=== PATIENT | male | born 1960 | race Asian ===

== ENCOUNTER 2024-12-01 18:25 | Inpatient (IN) | payer BC, SELFPAY ==
[2024-12-01] VITALS (8 sets, daily range): BP systolic 122–145; BP diastolic 82–100
--- NOTE | 2024-12-01 17:08 | ED.GENMED ---
History of Present Illness
General
Chief Complaint: Cardiac Symptoms
Source: patient and ambulance crew
Time Seen by Provider: 12/01/24 17:08
History of Present Illness
History of Present Illness:
63-year-old male presents with chest pain. The patient states the pain is 3 out of 10 but originally presented to an urgent care with 8 out of 10 chest pain. Patient was given nitroglycerin sublingual and 325 mg of aspirin by urgent care and 911
was called. EKG at the urgent care and confirmed by EMS was ST elevation changes. EMS was able to transmit his EKG prior to arrival which showed STEMI. A STEMI alert was initiated prior to arrival. Patient was met at the ambulance door by me.
Dr. Somers at bedside on arrival. Additional history by EMS, EMS reports that the pain has remained stable at a 3 out of 10 en route
Past History
Past History
ED Past Medical History: None
Social History
Tobacco: Non-smoker
Family History
Family History: CAD
Phy Exam
Physical Exam
Physical Exam:
CONSTITUTIONAL Vital signs reviewed, Patient alert and oriented to person, place and time. Well-appearing
HEAD atraumatic, normocephalic.
EYES eyelids normal to inspection, Extraocular muscles intact, Conjunctiva normal, Sclera normal.
NECK normal range of motion, Trachea midline, no jugular venous distention.
RESP no respiratory distress
BACK No obvious deformities
UPPER EXTREMITY Gross Range of motion normal, gross motor strength normal
LOWER EXTREMITY Gross range of motion normal, Gross motor strength normal
NEURO Speech normal, No focal motor deficits include, Sarina coma scale 15, Memory normal, Cranial Nerves intact to screening exam.
SKIN Skin warm, dry, and normal in color.
PSYCHIATRIC Patient oriented to person place and time, Normal affect.
Course
Orders/Labs/Results
Orders:
Orders
12/01/24 Dinner
Cholesterol Lowering
At Your Request: Full Participation
Does patient need a safe tray?: No
Cholesterol Lowering: Sodium, 2 Gram
12/01/24 17:06
CMP [Comprehensive Metabolic Panel] Urgent
Complete Blood Count/With Diff Urgent
Glycohemoglobin (HgbA1c) Urgent
PT/INR [Prothrombin Time] Urgent
PTT Urgent
12/01/24 17:31
Troponin I Urgent
12/01/24 17:34
Eptifibatide [Integrilin] 20 ml .ROUTE .STK-MED
12/01/24 18:16
Admit Patient As Directed
Co-Sign Provider:
Level of Care: Inpatient admission
Assign to:: IVU
Physician / Group: marylin
Diagnosis: Anterior wall ID
Reason for Hospitalization: Anterior wall ID
Expected length of stay greater than two midnights?: Yes
ELOS- Estimated Length of Stay in days: 2
I certify the patient meets the requirements for IP care: Yes
Electrocardiogram (*1) Urgent
Reason for Study: Other
Other Reason for Exam: s/p intervention
Code Status As Directed
Resuscitation Status: Full Code
CARDIAC REHAB CONSULT Routine
Co-Sign Provider:
Cardiac Rehab & Exercise Evaluation Referral
Type of Cardiac Rehab Referral: Outpatient
Diagnosis: STEMI
Date of Diagnosis/Surgery:
Referring Provider: Cal Coulter
[facility] Intensive Cardiac Rehab Exercise Prescription
The above named person is capable of participating in an intensive cardiac rehab exercise therapy program
under the guidance of the [facility] cardiac rehab staff, outpatient registered dieticians and
supervision of a physician.
ICR Program Objectives:
Provide supervised exercise, cooking classes, nutritional counseling and healthy mind-set education to
improve the function/symptom free work capacity to an optimal level as well as control risk factors to
prevent the progression of heart disease. During the supervised exercise therapy session some or all of
the following may be included in the cardiac rehab session: ECG telemetry, BP, heart rate, rate of
perceived exertion, symptoms/tolerance, cholesterol testing and education. Exercise modalities may
include: treadmill, upright or recumbent bike, spin bike, rowing machine, elliptical, recumbent
elliptical, arm-bike machine, recumbent stepper and free weights.
Intensity:
All CR staff will use ACSM guidelines: Most patients will exercise in the following range: Heart Rate
[place] range of 40% to 80% & Oxygen Uptake reserve range 40-80% (VO2R). Peak heart rate and VO2 are
derived from the cardiac rehab submaximal graded exercise test at RPE of 13/14 out of 20. Initial
intensity range: RPE 11 to 14/20 and may expand to 11 to 16/20.
Duration & Frequency:
If appropriate the patient will be progressed up to 40 minutes of exercise therapy. Patients will be
instructed to come three times a week in cardiac rehab and at a home/other gym to achieve optimal
physical activity/exercies i.e. 4000-10,000 steps per day.
Education:
The patient will receive one-on-one education during their orientation, initial exercise evaluation, ITP
reassessments and discharge session. Each exercise session will also include an education class (30-40
minutes).
Acetaminophen [Tylenol] 650 mg PO Q4HPRN PRN
Activity As Directed
Activity Level: Out of Bed- Chair
Comment: bed/chair rest for 2 hours then out of bed ad shea
Lunch Truck Operator Procedure As Directed
Cardiac Cath Procedure: percutaneous coronary intervention
Intake/ Output As Directed
Frequency: Per unit guidelines
Notify MD As Directed
Notify physician if: immediately for chest pain or bleeding from access site(s)
Radial Artery Hemostasis Method As Directed
Instructions:: 3 mL out at 2 hour posts placement of band
3 mL out at 2 1/2 hours post placement of band
3 mL out at 3 hours post placement of band
Off at 3 1/2 hours post placement of band
If any oozing or hemotoma occurs:: re-inflate band and call provider
Site Checks As Directed
Check access site for bleeding/hematoma: Yes
Comment: on arrival, Q15min x4, Q30min x2, Q1 hr x2, Q2 hr x2, Q4 hr or per
protocol
Vascular Checks As Directed
Location: distal to access site - pulse check
Frequency: Other
Comment: on arrival, Q15min x4, Q30min x2, Q1 hr x2, Q2 hr x2, Q4 hr or per protocol
Vital Signs As Directed
Frequency: Other
Additional Instructions:: on arrival, Q15min x4, Q30min x2, Q1 hr x2, Q2 hr x2, then Q4 hr or per unit
protocol
PRN Pain Medication Management As Directed
May give lesser potent ordered pain med per pt: Yes
preference::
Protocol:: Medication orders for pain may be administered in a
manner that supports deferring to patient preference
when the pt is:
- Requesting an ordered lesser potent pain medication.
Least to most potent pain medications are defined
as: acetaminophen < NSAID < tramadol < opioids
(morphine, oxycodone, hydromorphone).
- Requesting a lesser dose of the same medication IF
ORDERED.
- Requesting a less intrusive route of administration
if both routes are prescribed by the provider (PO <
IV).
12/01/24 18:17
DX Deep Vein Thrombosis Video Routine
12/01/24 18:30
Troponin I Q6H
0.9% Sodium Chloride 1000 ml [Nss] 1,000 ml IV PER PROTOCOL
Infusion rate in mL/kg/hr:: 1.5
Infusion rate in mL/hr:: 118
Duration of infusion (hours):: 4
Atorvastatin [Lipitor] 80 mg PO QPM
12/01/24 19:00
Flush (0.9% Sodium Chloride) [Flush (Nss)] See Dose Instructions IV PER PROTOCOL
12/02/24 00:30
Troponin I Q6H
12/02/24 06:00
Echo 2D MMode Color/Doppler IN AM
Reason for Study: Anterior wall ID
Cardiology Consult: Cal Coulter
Electrocardiogram (*1) IN AM
Reason for Study: Other
Other Reason for Exam: s/p intervention
Basic Metabolic Panel IN AM
Cardiovascular Evaluation IN AM
Complete Blood Count/No Diff IN AM
12/02/24 06:30
Troponin I Q6H
12/02/24 08:00
Aspirin Chewable [Low Strength Aspirin] 81 mg PO DAILY
Lisinopril [Zestril] 2.5 mg PO DAILY
Metoprolol Xl [Toprol Xl] 12.5 mg PO DAILY
Pantoprazole [Protonix] 40 mg PO DAILY
Ticagrelor [Brilinta] 90 mg PO BID
12/02/24 18:00
Enoxaparin Sodium [Lovenox] 40 mg SC QPM
Abnormal Lab Results
12/01/24 12/01/24 12/01/24
17:06 17:30 17:31
WBC 11.5 H 10^3/uL
(4.8-10.8)
Absolute Neuts (auto) 8.6 H 10^3/uL
(1.4-6.5)
Absolute Monos (auto) 0.8 H 10^3/uL
(0.1-0.6)
Lymphocytes % 16.9 L %
(20.5-51.1)
Glucose 113 H mg/dl
(70-99)
Troponin I 0.158 H* ng/ml
POC ACT Low Range 184 H Seconds
(116-155)
12/01/24 12/01/24
17:40 18:01
WBC
Absolute Neuts (auto)
Absolute Monos (auto)
Lymphocytes %
Glucose
Troponin I
POC ACT Low Range 245 H Seconds 298 H Seconds
(116-155) (116-155)
12/01/24 17:06
12/01/24 17:06
Vital Signs
Initial and Last Documented VS:
Initial Vital Signs
Temp Resp Pulse Ox
98.6 F 19 99
12/01/24 19:08 12/01/24 19:08 12/01/24 19:08
Last Documented Vital Signs
Temp Resp Pulse Ox
98.6 F 19 99
12/01/24 19:08 12/01/24 19:08 12/01/24 19:08
MDM/Problems Addressed
Differential Diagnosis Includes:
Acute coronary syndrome/myocardial infarction, pericarditis, myocarditis, aortic dissection
MDM/Problems Addressed:
Acute coronary syndrome, acute myocardial infarction
*Pulse Oximetry
SaO2: 98
Oxygen Mode of Delivery: Room air
Patient hypoxic: no
*EKG
Interpreted by ED Provider?: Yes
Interpretation: abnormal
Rate: normal
Rhythm: sinus
Ischemia: ST elevation
*Network Development Coordinator Interpretation
Rate: normal
Interpretation: normal
Rhythm: sinus
*Critical Care Note
Total Time (30-74mins, 75-104mins- exclusive of procedures): Not Applicable
Data Reviewed
Source: patient and ambulance crew
Further Testing Considered But Not Given:
Considered CT with patient showing evidence of ST elevation ID taken emergently to cardiac catheterization lab
Patient Management
Discussion with other providers: Glue Maker Bone
Escalation/DeEscalation of care consider admission/obs:
Case discussed with Dr. Coulter. But Dr. Couletr was able then to come down and meet the patient at bedside and accompanied the patient to cardiac catheterization lab. Patient remained stable while in the emergency department. Heparin and Brilinta
given
ED Attending Note
-
Portions of this chart may have been created with voice recognition software.� Occasional wrong word or��sound alike� substitutions may have occurred due to the inherent limitations of voice recognition software.
Discharge Plan
Departure
Patient Disposition: Admit
Date of Disposition: 12/01/24
Time of Disposition: 17:08
Admit to: Telemetry and laboratory technology teacher
Presentation/result/management discussed w/ accepting MD/DO: Marylin
Discharge Problem:
ST elevation (STEMI) myocardial infarction
Interventions
Interventions:
*Nursing Disposition Last Done: 12/01/24 17:09
Discharge Date and Time
Discharge Date/Time: 12/01/24 17:12
[2024-12-01 17:14] LABS: Hematocrit 41.4 % (39.0-52.0); Hemoglobin 14.6 g/dL (13.0-18.0); Mean Corp Hgb Conc. 35.3 g/dL (33.0-37.0); Mean Corpuscular Volume 86.1 fL (80.0-94.0); Nucleated Red Blood Cells % 0 % (-); Platelet Count 321 10^3/uL (130-400); Red Cell Dist. Width 13.1 % (11.5-14.5)
[2024-12-01 17:24] LABS: APTT 27.3 Sec (23.4-35.0); INR 0.93; PT 12.8 Sec (11.4-14.6)
[2024-12-01 17:33] LABS: ALT (SGPT) 28 U/L (0-50); AST (SGOT) 26 U/L (17-59); Albumin 4.4 g/dl (3.5-5.0); Alkaline Phosphatase 43 U/L (38-126); Blood Urea Nitrogen 19 mg/dl (9-20); Calcium 9.4 mg/dl (8.4-10.2); Carbon Dioxide 25 mmol/L (22-30); Chloride 103 mmol/L (98-107); Glucose 113 mg/dl (70-99); Potassium 4.3 mmol/L (3.5-5.1); Sodium 135 mmol/L (135-145); Total Protein 6.8 g/dl (6.3-8.2); eGFR > 60.00
[2024-12-01 17:34] LABS: ACT-LR - POC 184 Seconds (116-155)
[2024-12-01 17:46] LABS: ACT-LR - POC 245 Seconds (116-155)
[2024-12-01 18:09] LABS: ACT-LR - POC 298 Seconds (116-155)
--- NOTE | 2024-12-01 18:27 | ITS.CL.CATH ---
Felt Cutter - Catheterization
Cardiac Catheterization
Procedure Report:
LEFT HEART CATH AND CORONARY INTERVENTION
Date of Procedure: December 01, 2024
Referring: [facility] Emergency Department
PROCEDURES:
1. Left heart catheterization with coronary and single-plane left ventriculography
2. Successful stenting of the mid LAD with a 2.75 x 26 mm Midlothian stent that was implanted at nominal pressures and postdilated with a 2.75 mm noncompliant balloon to high pressures
3. Intravascular ultrasound guided post dilation of the Midlothian stent
INDICATION: This is a 63-year-old gentleman who has no prior cardiovascular history and reported the onset of severe substernal chest pressure beginning at approximately 3 PM-3:30 PM this afternoon. He was here visiting family from his home outside
of [facility] and called his cousin who took him to a local urgent care. An electrocardiogram at the urgent care facility was notable for anterior ST segment elevation involving leads V1 through V3. 911 was called and a prehospital STEMI
alert was activated. Patient received aspirin and upon arrival to [facility] his chest pain had improved from 10/10 to 3/10 in intensity but his electrocardiogram was notable for persistent anterior ST segment elevation and he was brought
to the catheterization laboratory via ED bypass protocol.
Of note, the patient does report that he drinks approximately 2-3 alcoholic beverages daily
ACCESS: Right radial artery, 6 Nauruan sheath
HEMODYNAMICS (mmHg):
AO (s/d, m) : 131/79, 82
LV (s/d) : 131/2
LVEDP : 12
CORONARY FINDINGS
Dominance: Right
LEFT MAIN: Normal
LEFT ANTERIOR DESCENDING: The LAD arises normally from the left main and runs in the anterior interventricular groove. The mid LAD has a thrombotic subtotal occlusion just beyond a medium caliber diagonal branch with JOE I flow into the distal
vessel.
RAMUS: Large and widely patent
CIRCUMFLEX: The circumflex is a medium to large caliber nondominant vessel supplying several small obtuse marginal branches before continuing in the AV groove terminating in a moderate size posterolateral system. Only minor irregularities are noted.
RIGHT CORONARY: The right coronary artery is a dominant vessel and has minor irregularities over its course. No focal obstructive stenosis is appreciated
VENTRICULOGRAPHY: Left ventriculography is performed in an RICKETTS projection. The digital single-plane left ventricular ejection fraction is estimated at 60% with mid to distal anterior hypokinesis
ANGIOPLASTY PROCEDURE DETAIL: Upon review of the diagnostic catheterization films the decision was made to proceed with percutaneous revascularization of the subtotally occluded mid LAD. Intravenous heparin was administered and the ACT was
monitored throughout the procedure and maintained within therapeutic limits. The decision was made to treat with double bolus Integrilin as the patient was na�ve to antiplatelet therapy and angiography suggested a large thrombotic burden in the mid
LAD beyond the diagonal branch.
I initially attempted to cannulate the origin of the left main with an EBU 3.5 guiding catheter which unfortunately did not sit well at the origin of the left main. The EBU was removed and exchanged for an XB 3.5 mm 6 Nauruan guide catheter which
cannulated the origin of the left main well. A BMW was advanced across the stenotic segment in the mid LAD and the tip of the wire was advanced into the distal LAD. Balloon predilation was performed with a 2.25 x 15 mm Euphora balloon with 2
inflations to 8 daniel. Improved antegrade flow to the LAD was noted. A 2.75 x 26 mm Diallo stent was then advanced over the guidewire and positioned with angiographic and fluoroscopic guidance. The Diallo stent was implanted at nominal pressure.
Intravascular ultrasound was performed. The distal portion of the stent appeared well-approximated to the distal vessel and was well-expanded. The midportion of the stent appeared mildly underexpanded but appropriately sized in the proximal
portion of the stent appeared mildly underexpanded but appropriately sized. A 2.75 x 20 mm noncompliant balloon was advanced to the mid LAD and inflated to 18 daniel. The balloon was retracted to the proximal portion of the stent and inflated to 20
daniel with a nice angiographic result.
SEDATION: 52 minutes of procedural sedation was utilized. An independent medical delivery technician was present to assist with and help manage the patient's level of consciousness and physiologic status
RADIATION SUMMARY: Fluoro Time (min): 13.2, Dose (mGy): 735, DAP (Gy.cm2) : 45.3
CONCLUSIONS
1. Evolving anterior wall myocardial infarction successfully treated with angioplasty and stenting with placement of a 2.75 x 26 mm Midlothian stent that was postdilated with a 2.75 mm noncompliant balloon following intravascular ultrasound guidance.
2. Low normal to Erwin reduced LVEF
RECOMMENDATIONS
1. Will trend serial troponin levels, obtain hemoglobin A1c and fasting lipid profile
2. Uninterrupted dual antiplatelet therapy for 1 year
3. High intensity statin therapy
4. Guideline directed medical therapy post ND with initiation of oral beta-jennifer and SLIM inhibitor. Will follow blood pressures and titrate as blood pressure tolerates
5. Check echocardiogram
[2024-12-01 18:33] LABS: Troponin I 0.158 ng/ml
--- NOTE | 2024-12-01 18:59 | PTCARENOTE ---
Received pt post cath. Right radial cath site w/ R band intact and inflated w/ air. VSS. EKG obtained. Pt denies any chest pain. Will monitor.
[2024-12-01] MEDS: LIPITOR 80 MG PO (21:02)
--- NOTE | 2024-12-01 22:50 | PTCARENOTE ---
assumed care of patient at the change of shift. post cardiac cath. denies any cp/sob. SR on tele. family at the bedside.
right radial band removed with no issues at approx 2230. + pulses. denies any cp. ambulated to the bathroom. denies any lightheadedness/dizziness. CAD booklet and new med list provided and reviewed. educated patient to inform Rn with any changes
overnight. call swanson within reach. makes needs known.
[2024-12-01 23:16] LABS: Troponin I 28.700 ng/ml
[2024-12-02] VITALS (9 sets, daily range): BP systolic 112–158; BP diastolic 75–105
[2024-12-02 04:43] LABS: Hematocrit 42.9 % (39.0-52.0); Hemoglobin 14.9 g/dL (13.0-18.0); Mean Corp Hgb Conc. 34.7 g/dL (33.0-37.0); Mean Corpuscular Volume 86.1 fL (80.0-94.0); Platelet Count 324 10^3/uL (130-400); Red Cell Dist. Width 13.1 % (11.5-14.5)
[2024-12-02] MEDS: APRESOLINE 5 MG IV (04:52)
--- NOTE | 2024-12-02 04:56 | PTCARENOTE ---
Addendum entered by Dewayne Cottrell RN 12/02/24 05:35:
repeat blood pressure- 127/86.
Original Note:
patient rested well overnight. no chest pain. Right radial site intact. elevated bp- 158/100. updated Ed Darcy CV PA. 5 mg IV Hydralazine ordered and given, see mar.
[2024-12-02 05:08] LABS: Blood Urea Nitrogen 14 mg/dl (9-20); Calcium 9.5 mg/dl (8.4-10.2); Carbon Dioxide 27 mmol/L (22-30); Chloride 107 mmol/L (98-107); Estimated Creatinine Clearance 58 ml/min; Glucose 113 mg/dl (70-99); HDL Cholesterol 45 mg/dl; LDL Cholesterol, Calculated 168 mg/dl; Potassium 4.6 mmol/L (3.5-5.1); Sodium 138 mmol/L (135-145); Very Low Density Lipoprotein 33 mg/dl (0-30); eGFR > 60.00
[2024-12-02 05:18] LABS: Troponin I 24.300 ng/ml
[2024-12-02 07:50] LABS: ACT-LR - POC > 397 Seconds (116-155)
[2024-12-02 08:40] LABS: Glycohemoglobin (HgbA1c) 5.8 % (4.0-5.6)
[2024-12-02] MEDS: TOPROL XL 12.5 MG PO (08:46)
[2024-12-02] MEDS: PROTONIX 40 MG PO (08:46)
[2024-12-02] MEDS: BRILINTA 90 MG PO ×2 (08:47→19:31)
[2024-12-02] MEDS: LOW STRENGTH ASPIRIN 81 MG PO (08:47)
[2024-12-02] MEDS: ZESTRIL 2.5 MG PO (08:47)
--- NOTE | 2024-12-02 08:54 | W.PN.CARDCBS ---
Addendum entered and electronically signed by Marissa Haro MD 12/02/24 15:24:
10. Discussed outpatient cardiac rehab.
Marissa Haro MD
Addendum entered and electronically signed by Marissa Haro MD 12/02/24 15:12:
I saw and examined the patient.
The User Acceptance Tester's note was reviewed and I agree with the note.
Comment: Patient is doing well this morning and does not offer any major complaints. No further chest discomfort or shortness of breath. He is ambulated to the bathroom without any issues. No issues at the right radial access site.
Vital signs and lab work reviewed. Troponin peaked at about 28.7, downtrending. On exam patient is well-appearing, no acute distress, awake, alert and oriented x 3, at bedside, regular rate, normal S1 and S2, no murmurs, rubs or gallops, no
JVD, lungs are clear to auscultation bilaterally, abdomen is soft, nontender, nondistended with active bowel sounds, warm extremities without significant edema. Right radial access site with dressing in place which is clean, dry and intact without
evidence of hematoma or bruit.
Echocardiogram shows low normal left ventricular systolic function. Telemetry with ventricular ectopy and AIVR
Recommendations:
1. Uninterrupted dual antiplatelet therapy with daily baby aspirin and Brilinta 90 mg twice daily along with high intensity statin. Extensive education was provided in regards to importance of not missing DAPT therapy or stopping cardiac
medication suddenly without discussion with a horses or mules teamster. LDL goal of less than 55.
2. Slowly uptitrate beta-jennifer as warranted especially with some ventricular ectopy on telemetry.
3. Educated in regards to aggressive risk factor modification especially in the setting of prediabetes and poorly controlled hypertension as well as hyperlipidemia.
4. We discussed following a heart healthy high-fiber Mediterranean type diet.
5. Given he lives in [place] we will work on obtaining CD with cath and echo images as well as reports to bring along with him.
6. They inquired about when it would be safe to travel back home. We discussed spending at least a week here after discharge to make sure he does well with plan to fly home at the earliest towards the end of next week as long as there is no issues.
7. Your primary care physician, Dr. Lopez, was on speaker phone while I was in there reviewing all of the above and has reached out to his cardiology colleagues already for patient to follow-up with in [place].
8. Emphasize importance of alcohol abstinence.
9. Continue to monitor at least overnight and hopefully if no other issues, would likely plan for discharge tomorrow.
Marissa Haro MD, [facility]
Total time spent: 52mins
Original Note:
Today's Communication / Plan
-
continue post [facility] care
DAPT
Will start to work on finding horses or mules teamster in [place]
Impression / Plan
-
PCP: [place], [place]
63-year-old gentleman who has no prior cardiovascular history and reported the onset of severe substernal chest pressure beginning at approximately 3 PM-3:30 PM this afternoon. He was here visiting family from his home outside of [facility]
and called his cousin who took him to a local urgent care. An electrocardiogram at the urgent care facility was notable for anterior ST segment elevation involving leads V1 through V3. 911 was called and a prehospital STEMI alert was activated.
Patient received aspirin and upon arrival to [facility] his chest pain had improved from 10/10 to 3/10 in intensity but his electrocardiogram was notable for persistent anterior ST segment elevation and he was brought to the catheterization
laboratory via ED bypass protocol.
Impression:
Anterior STEMI
post PCI mid LAD [id number] Warriors Mark MIGUELANGEL 12/01/24
Elevated glucose
Daily ETOH
Family history CAD
Plan:
post PCI no further chest pain
rad site stable
tele SR with NSVT 8b, AIVR
Troponin peaked at 28.7
Echo currently being done
DAPT ASA/Brilinta (CM to eval cost)
New start to metoprolol xl and lisinopril
LDL 168, TG 166, continue high intensity statin, will need repeat LFT's, lipids in 6-8 weeks
A1c pending
He will need to make apt with horses or mules teamster in [place]
Cardiac rehab c/s
ETOH cessation reinforced
Will make disc and give copy of records to pt as he plans to fly back to [place] within the next week
continue to monitor another 24-48 hours on tele
oob ambulate later today
Progress Note - Atm Manager
Subjective
Date of Service: December 02, 2024
denies cp, sob
Objective
Labs:
12/02/24 04:21
12/02/24 04:21
Labs
Hgb 14.9 g/dL (13.0-18.0) 12/02/24 04:21
Hct 42.9 % (39.0-52.0) 12/02/24 04:21
Plt Count 324 10^3/uL (130-400) 12/02/24 04:21
PT 12.8 Sec (11.4-14.6) 12/01/24 17:06
INR 0.93 12/01/24 17:06
APTT 27.3 Sec (23.4-35.0) 12/01/24 17:06
Sodium 138 mmol/L (135-145) 12/02/24 04:21
Potassium 4.6 mmol/L (3.5-5.1) 12/02/24 04:21
BUN 14 mg/dl (9-20) 12/02/24 04:21
Creatinine 1.2 mg/dL (0.7-1.3) 12/02/24 04:21
Glucose 113 mg/dl (70-99) H 12/02/24 04:21
Troponins
12/01/24 12/01/24 12/01/24
17:06 17:31 22:30
Troponin I Cancelled 0.158 H* 28.700 H* D
12/02/24 12/02/24
04:21 06:30
Troponin I 24.300 H* Cancelled
Vital Signs and I&O:
Vital Signs
Temp Pulse Resp BP Pulse Ox
98.1 F 88 20 130/87 98
12/02/24 07:55 12/02/24 08:46 12/02/24 07:55 12/02/24 08:46 12/02/24 07:55
Vital Signs
Temp Pulse Resp BP Pulse Ox
98.1 F 88 20 130/87 98
12/02/24 07:55 12/02/24 08:46 12/02/24 07:55 12/02/24 08:46 12/02/24 07:55
Intake & Output
11/30/24 12/01/24 12/02/24 12/03/24
06:59 06:59 06:59 06:59
Intake Total 250 / 250
Output Total 950 / 950
Balance -700 / -700
Physical Exam
Physical Exam
NAD, AOx3
S1, s2, RRR
CTAB, non labored, no wheeze
SNTND Bsx4
R rad site c/d/i no HT, good pulse
--- NOTE | 2024-12-02 11:06 | CM ---
Addendum entered by Wilda Lopez 12/02/24 15:15:
Telephone call to [facility] at [place] to confirm that his Ticagrelor 90 mg po bid has been filled. The script has been filled and waiting for pick-up. His co-pay is $30.00.
Addendum entered by Wilda Lopez 12/02/24 11:58:
Telephone call to [facility], ([phone])coverage to check on co-pay for Brilinta 90 mg po bid. Brilinta 90 mg po bid is $437.38 a month. the generic Ticagrelor is $30.00 a month and for 90 days is $90.00 a month. The in-network
providers are Cheryl Brice and [facility]. Reviewed co-pay with and Mrs. Henderson and they are agreeable to co-pay for Ticagrelor. Telephone call to [facility] in [place] to see if they have Ticagrelor 90 mg in stock, [facility]. Asked N.P to send script to [facility]. Faxed insurance information and demographic information to [employer]. Her hotel is in [place]. She is okay going to [facility] in [place] to sampler pickup the medications.
Original Note:
Reviewed chart. Met with and Mrs. Henderson to review discharge plans. He states prior to admission he resides in a one story home with one step to enter. He states prior to admission he was independent with ambulation and adls. He states he
does not have any DME in the home. He states he has a prescription plan. Tried to contact his insurance regarding co-pay for Brilinta. Not able to get an answer. Will try again. Currently he is here visiting and staying ion a hotel. Medical
work-up in progress. The discharge plan is to return home with his spouse when medically stable.
--- NOTE | 2024-12-02 11:10 | PTCARENOTE ---
Discussed ACS post cath plan of care. Discussed ASA and Brillinta w/ pt and pt's . Education material provided. Will monitor.
[2024-12-02] MEDS: LOVENOX 40 MG SC (18:04)
[2024-12-02] MEDS: LIPITOR 80 MG PO (18:04)
--- NOTE | 2024-12-02 22:52 | PTCARENOTE ---
Pt has no complaints of chest pain/discomfort, VSS, NSR on the monitor. Right radial cath site dressing CDI with no hematoma or bleeding, radial pulse normal. Pt. ambulatory in halls, hoping for discharge tomorrow.
[2024-12-03 04:42] VITALS: BP 108/63
[2024-12-03 07:45] VITALS: BP 119/70
[2024-12-03] MEDS: LOW STRENGTH ASPIRIN 81 MG PO (07:46)
[2024-12-03] MEDS: ZESTRIL 5 MG PO (07:46)
[2024-12-03] MEDS: PROTONIX 40 MG PO (07:46)
[2024-12-03] MEDS: BRILINTA 90 MG PO (07:46)
[2024-12-03] MEDS: TOPROL XL 25 MG PO (07:46)
--- NOTE | 2024-12-03 08:00 | PTCARENOTE ---
Assumed care at 0700. Patient comfortable at rest, denies pain. NSR. VSS, right radial cath site dressing CDI. Independent in the room, precautions reviewed, call swanson in reach
--- NOTE | 2024-12-03 09:01 | W.PN.CARDCBS ---
Addendum entered and electronically signed by Marissa Haro MD 12/03/24 15:35:
I saw and examined the patient.
The Concrete Paving Machine Operator's note was reviewed and I agree with the note.
Comment:
Overall patient is doing well and does not offer any significant complaints. is at bedside. No further chest pain or shortness of breath
Vital signs and lab work were reviewed. On exam patient is well-appearing, out of bed into a chair, regular rate, normal S1 and S2, no murmurs, rubs or gallops, no JVD, no carotid bruits, lungs are clear to auscultation bilaterally, abdomen is
soft, nontender, nondistended with active bowel sounds, warm extremities without significant edema. Right radial access site without evidence of hematoma or bruit
Echocardiogram with overall preserved LV systolic function.
Telemetry with reduce ventricular ectopy.
Recommendations:
1. Continue uninterrupted dual antiplatelet therapy with daily baby aspirin and Brilinta along with high intensity statin beta-jennifer and low-dose SLIM inhibitor as prescribed.
2. Aggressive management of cardiovascular risk factors.
3. Outpatient referral for cardiac rehab and outpatient cardiology follow-up in his hometown in [place] [place].
4. Answered all of their questions in detail to the best of my ability. Strongly advocate a heart healthy Mediterranean type diet and increasing activity with overall goal for weight loss to achieve a normal BMI.
Stable for discharge from a cardiac standpoint.
Marissa Haro MD, [facility], [facility]
Original Note:
Today's Communication / Plan
-
Continue aspirin, Brilinta, Lipitor, Toprol, lisinopril
Echo results reviewed with patient
Cardiac rehab and cardiac follow-up being arranged in [facility]
Okay for discharge today
Impression / Plan
-
PCP: Kiet MA
63-year-old gentleman who has no prior cardiovascular history and reported the onset of severe substernal chest pressure beginning at approximately 3 PM-3:30 PM this afternoon. He was here visiting family from his home outside of [facility] [place]
and called his cousin who took him to a local urgent care. An electrocardiogram at the urgent care facility was notable for anterior ST segment elevation involving leads V1 through V3. 911 was called and a prehospital STEMI alert was activated.
Patient received aspirin and upon arrival to [facility] his chest pain had improved from 10/10 to 3/10 in intensity but his electrocardiogram was notable for persistent anterior ST segment elevation and he was brought to the catheterization
laboratory via ED bypass protocol.
Impression:
Anterior STEMI status post PCI mid LAD [id number] Diallo MIGUELANGEL 12/01/24
Elevated glucose, hemoglobin A1c 5.8%
HLD
Daily ETOH
Family history CAD
Echo 12/02/2024: EF 50 to 55%, stage I diastolic dysfunction, severe hypokinesis of mid to distal anteroseptal wall, aortic sclerosis
Plan:
- Patient presented with chest pain and was a prehospital STEMI alert. Underwent urgent cardiac catheterization resulting in mid LAD PCI 12/01/2024. Troponin peaked at 28.
- No chest pain or shortness of breath overnight
- Right wrist site remains stable
- Telemetry sinus rhythm without arrhythmia noted
- Echo with results as above, discussed with patient 12/03
- Continue dual antiplatelet therapy with aspirin, Brilinta
- Was started on Toprol and lisinopril this admission, continue upon discharge
- LDL 168. Placed on high intensity statin. Would repeat LFTs and lipids in 6 to 8-week timeframe
- Hemoglobin A1c 5.8%
- For cardiac rehab in [place]
- supervisor speech discussed with PCP yesterday, who is arranging cardiac follow-up in [place] upon his return
- Will make disc of echo and cath for patient to take with him as well as printed copies of testing
- Plan for discharge today
- Discussed with nursing
Progress Note - Accounts Payable Accountant
Subjective
Date of Service: December 03, 2024
Denies chest pain, shortness of breath. Eager for discharge
Objective
Labs:
12/02/24 04:21
12/02/24 04:21
Labs
Hgb 14.9 g/dL (13.0-18.0) 12/02/24 04:21
Hct 42.9 % (39.0-52.0) 12/02/24 04:21
Plt Count 324 10^3/uL (130-400) 12/02/24 04:21
PT 12.8 Sec (11.4-14.6) 12/01/24 17:06
INR 0.93 12/01/24 17:06
APTT 27.3 Sec (23.4-35.0) 12/01/24 17:06
Sodium 138 mmol/L (135-145) 12/02/24 04:21
Potassium 4.6 mmol/L (3.5-5.1) 12/02/24 04:21
BUN 14 mg/dl (9-20) 12/02/24 04:21
Creatinine 1.2 mg/dL (0.7-1.3) 12/02/24 04:21
Glucose 113 mg/dl (70-99) H 12/02/24 04:21
Troponins
12/01/24 12/01/24 12/01/24
17:06 17:31 22:30
Troponin I Cancelled 0.158 H* 28.700 H* D
12/02/24 12/02/24
04:21 06:30
Troponin I 24.300 H* Cancelled
Vital Signs and I&O:
Vital Signs
Temp Pulse Resp BP Pulse Ox
98.3 F 75 16 119/70 98
12/03/24 08:30 12/03/24 07:45 12/03/24 04:43 12/03/24 07:45 12/03/24 04:43
Vital Signs
Temp Pulse Resp BP Pulse Ox
98.3 F 75 16 119/70 98
12/03/24 08:30 12/03/24 07:45 12/03/24 04:43 12/03/24 07:45 12/03/24 04:43
Intake & Output
12/01/24 12/02/24 12/03/24 12/04/24
07:59 07:59 07:59 07:59
Intake Total 250 / 250 480 / 480
Output Total 950 / 950
Balance -700 / -700 480 / 480
Physical Exam
Physical Exam
GEN: No distress, awake, alert, oriented x3
HEENT: supple, anicteric, mmm, EOMI
LUNGS: CTA bilaterally, no wheezes/rales
CV: Reg, S1/S2, 1/6 syst LSB
ABD: soft, BS+, NT/ND
EXT: No cyanosis, clubbing, edema
NEURO: Gross non-focal
SKIN: Warm, pink, dry. No rash. Right wrist site nontender to palpation, dressing clean dry and intact
--- NOTE | 2024-12-03 09:08 | W.DS.TRANS ---
DC Summary - Clinical Staff Anesthesiologist
-
Discharge Instructions:
Discharge Diagnosis/Procedures STEMI, Angioplasty with stent to LAD
Diet Low Cholesterol
Activity No strenuous activity
Additional Activity no heavy lifting greater than 10 pounds for 1
week
Driving Restrictions No driving for 24 hours
Other Services Cardiac Rehab
Instructions:
Stand-Alone Forms: DC Instructions- Cath/EP Lab
Changes to Home Medications: Yes
Discharge Medications:
DC Medications w/original date entered in [employer]
aspirin 81 mg chewable tablet 81 mg PO DAILY #1 tab 12/02/24
atorvastatin 80 mg tablet 80 mg PO QPM #90 tabs 12/02/24
lisinopril 2.5 mg tablet 5 mg (2 x 2.5 mg) PO DAILY #90 tabs 12/02/24
metoprolol succinate 25 mg tablet,extended release 24 hr 25 mg PO DAILY #90 tabs 12/02/24
nitroglycerin 0.4 mg sublingual tablet 0.4 mg sublingual [id number] PRN chest pain #25 tabs 12/02/24
ticagrelor 90 mg tablet (Brilinta) 90 mg PO BID #180 tabs 12/02/24
Home Medication Changes
All meds are new
Pending Results: No
--- NOTE | 2024-12-03 10:08 | CM ---
Reviewed chart. Met with and Mrs. Henderson to review discharge plans. Mrs. Henderson has already pick-up his medications from [facility]. He states he is feeling well and maybe able to go home soon. They are planning on staying in the area
until the doctor tells him it is safe to fly back home to [place]. They are staying in a hotel in [place], [place]. He is here visiting from [place]. Prior to admission he resides with his spouse in a one story home with one step to enter.
Prior to admission he was independent with ambulation and adls. He does not have any DME in the home. He has a prescription plan with [facility] and uses [facility]. Medical work-up in progress. The discharge plan is to return back to
his hotel with his spouse until he can travel back to his home in [place] when medically stable.
[2024-12-03 12:26] VITALS: BP 98/72
[2024-12-03 12:27] VITALS: BP 96/68
--- NOTE | 2024-12-03 12:43 | PTCARENOTE ---
Patient discharged to home. IV and Telemetry removed. Instructions reviewed, patient verbalized understanding. Escorted to main lobby by staff
== END 2024-12-03 13:07 | disposition home or self-care (01) | DRG 322 ==
LOC: IVU 18:25
PROVIDERS: ADMITTING PHYSICIAN Internal Medicine Interventional Cardiology; ATTENDING PHYSICIAN Internal Medicine Interventional Cardiology; EMERGENCY PHYSICIAN Emergency Medicine
PROC: 4A023N7 Measurement of Cardiac Sampling and Pressure, Left Heart, Percutaneous Approach (ICD-10-PCS; 2024-12-01)
PROC: B2111ZZ Fluoroscopy of Multiple Coronary Arteries using Low Osmolar Contrast (ICD-10-PCS; 2024-12-01)
PROC: 027034Z Dilation of Coronary Artery, One Artery with Drug-eluting Intraluminal Device, Percutaneous Approach (ICD-10-PCS; 2024-12-01)
PROC: B240ZZ3 Ultrasonography of Single Coronary Artery, Intravascular (ICD-10-PCS; 2024-12-01)
DX: I21.09 ST elevation (STEMI) myocardial infarction involving other coronary artery of anterior wall (principal); I47.29 Other ventricular tachycardia; R73.9 Hyperglycemia, unspecified; F10.90 Alcohol use, unspecified, uncomplicated; I70.0 Atherosclerosis of aorta; E78.5 Hyperlipidemia, unspecified; R73.03 Prediabetes; I49.8 Other specified cardiac arrhythmias; I25.10 Atherosclerotic heart disease of native coronary artery without angina pectoris; Z79.82 Long term (current) use of aspirin; Z79.02 Long term (current) use of antithrombotics/antiplatelets; Z82.49 Family history of ischemic heart disease and other diseases of the circulatory system
CPT/HCPCS: 80048; 80053; 80061; 83036; 84484; 85025; 85027; 85347; 85610; 85730; 92978; 93005; 93306; 93458; 99152; 99153; 99283; C1725; C1753; C1769; C1874; C1887; C1894; C9606; J1327; Q9967